=== PATIENT | male | born 1990 | race Caucasian/White ===

== ENCOUNTER 2020-04-13 03:31 | Emergency (ER) | payer OTHER ==
[~2020-04-13] VITALS: Ht 177.8 cm; Wt 68.0 kg
[2020-04-13 03:43] VITALS: BP 110/59; Ht 177.8 cm; Wt 68.0 kg
== END 2020-04-13 04:36 ==
LOC: ED 03:31
DX: Z02.89 Encounter for other administrative examinations (principal)